=== PATIENT | female | born 1985 | race Hispanic/Latino ===

== ENCOUNTER 2018-03-14 11:54 | Observation (INO) | payer MEDICAID ==
[~2018-03-14 11:54] MED LIST: ACET1TAB12 PO; DOCU-116 PO; IBUP-2077 PO; IRON-6 PO
== END 2018-03-14 14:00 | disposition home or self-care (01) ==
LOC: EDH 11:54 → LDH 11:55
PROVIDERS: ADMIT Obstetrics & Gynecology; ATTEND Obstetrics & Gynecology
DX: O36.8120 Decreased fetal movements, second trimester, not applicable or unspecified (principal); O30.002 Twin pregnancy, unspecified number of placenta and unspecified number of amniotic sacs, second trimester; Z3A.24 24 weeks gestation of pregnancy
CPT/HCPCS: 76819 ×2; 99285; G0378 ×2

== ENCOUNTER 2018-05-13 22:12 | Observation (INO) | payer MEDICAID ==
[~2018-05-13] VITALS: Ht 152.4 cm; Wt 74.8 kg
[2018-05-14 00:01] LABS: BILIRUBIN,URINE Negative (NEGATIVE); COLOR,URINE Yellow (YELLOW); GLUCOSE, URINE (UA) Negative (NEGATIVE); KETONES,URINE Negative (NEGATIVE); LEUKOCYTE ESTERASE ,URINE Trace (NEGATIVE); NITRATE,URINE Negative (NEGATIVE); OCCULT BLOOD,URINE Negative (NEGATIVE); PH,URINE 6.5 (5.0-8.0); PROTEIN,URINE Negative (NEGATIVE)
[2018-05-14 00:02] LABS: APPEARANCE,URINE CLEAR (CLEAR)
[2018-05-14 00:16] LABS: BACTERIA,URINE Few /HPF (None Seen); RBC,URINE 0-1 /HPF (0-1); WBC,URINE 0-1 /HPF (0-1)
== END 2018-05-14 00:42 | disposition home or self-care (01) ==
LOC: EDH 23:06 → LDH 23:07
PROVIDERS: ADMIT Obstetrics & Gynecology; ATTEND Obstetrics & Gynecology
DX: O24.419 Gestational diabetes mellitus in pregnancy, unspecified control (principal); O26.613 Liver and biliary tract disorders in pregnancy, third trimester; K83.1 Obstruction of bile duct; O30.003 Twin pregnancy, unspecified number of placenta and unspecified number of amniotic sacs, third trimester; Z3A.32 32 weeks gestation of pregnancy
CPT/HCPCS: 81001; 82948; 99284; G0378 ×2